=== PATIENT | female | born 1935 | race Caucasian/White ===

== ENCOUNTER 2021-02-19 08:13 | Observation (INO) | payer MEDICARE, OTHER ==
[~2021-02-19] VITALS: Ht 157.5 cm; Wt 56.6 kg
[2021-02-19] MEDS ORDERED: GLYCERIN ADULT 1 SUPP.RECT. PR ONE (08:45)
[2021-02-19] MEDS ORDERED: SODIUM PHOSPHATES 19/7GM 133 ML ENEMA. PR ONE (08:45)
[2021-02-19] MEDS ORDERED: IV RINGERS SOLUTION,LACTATED 1,000 ML IV ONE (08:45)
[2021-02-19] MEDS ORDERED: BISACODYL 10 MG SUPP.RECT PR ONE (08:45)
--- NOTE | 2021-02-19 08:52 | PHYS DOC ---
Past History Past Medical History: Anemia, CAD, Cancer, Hypertension Past Surgical History: Hysterectomy, Other Additional Past Surgical Histo: PORT, AAA repair Alcohol Use: None General Adult EDM: Chief Complaint: CONSTIPATION HPI: HPI: 86-year-old female coming in for constipation for the past 5 days she has not had a bowel movement. Patient states she can "feel it right there". She says she has been too weak to try to strain or force a bowel movement. Patient is currently undergoing chemotherapy with cisplatin and topotecan for small cell carcinoma of the lung. Does not take anything at home. Denies abdominal distention or vomiting. No other complaints. Review of Systems: Review of Systems: All other systems within normal limits except for as noted in the HPI Current Medications: Current Meds: Current Medications Medications (Trade) Dose Ordered Sig/Yuni Start Time Stop Time Status Last Admin Dose Admin Bisacodyl (Dulcolax Supp) 10 mg 1X ONCE 02/19/21 08:45 02/19/21 08:46 UNV Glycerin (Sani-Supp Adult) 1 supp 1X ONCE 02/19/21 08:45 02/19/21 08:46 UNV Lactated Ringer's 1,000 ml @ 1,000 mls/hr 1X ONCE 02/19/21 08:45 02/19/21 09:44 UNV Sodium Biphosphate/ Sodium Phosphate (Fleet Adult) 133 ml 1X ONCE 02/19/21 08:45 02/19/21 08:46 UNV Allergies: Allergies: Allergies Coded Allergies Type Severity Reaction Last Updated Verified codeine Allergy Unknown 02/19/21 Yes morphine Allergy Unknown 02/19/21 Yes Physical Exam: PE: Constitutional: Well developed, well nourished, no acute distress, non-toxic appearance. [] HENT: Normocephalic, atraumatic, bilateral external ears normal, nose normal. [] Eyes: PERRLA, conjunctiva normal, no discharge. [] Neck: No rigidity, supple, no stridor. [] Cardiovascular: Regular rate and rhythm, brisk cap refill [] Lungs & Thorax: Non labored symmetric respirations, no tachypnea or respiratory distress [] Abdomen: Soft, nondistended, no focal tenderness, no pulsatile masses. Skin: Warm, dry, no erythema, no rash. [] Back: Unremarkable Extremities: No deformities, range of motion grossly intact, no lower extremity edema [] Neurologic: Alert and oriented X 3, no focal deficits noted. [] Psychologic: Affect normal, judgement normal, mood normal. [] Current Patient Data: Vital Signs: Vital Signs Date Time Temp Pulse Resp B/P (MAP) Pulse Ox O2 Delivery O2 Flow Rate FiO2 02/19/21 08:20 97.8 105 18 130/80 (97) 96 EKG: EKG: Sinus tachycardia, heart rate 102 bpm, normal axis, no ST elevation or depression. 1 PVC. Normal intervals. [] Radiology/Procedures: Radiology/Procedures: XR ABDOMEN COMP ACUTE INDICATION: obstrucion . COMPARISON STUDY: 09/09/2011. FINDINGS: Left IJ Port-A-Cath. Lungs: Normal lung volume. No pulmonary mass or consolidation. The tracheobronchial tree and hilar structures are normal. Pleura: No pleural effusion or pneumothorax. Heart and Mediastinum: The cardiomediastinal silhouette is normal. Tortuous athe rosclerotic aorta. Abdomen: Nonobstructive bowel gas pattern. Large colonic stool burden. IMPRESSION: 1. Nonobstructive bowel gas pattern. Large colonic stool burden, which may reflect constipation. 2. No focal airspace disease.[] Heart Score: C/O Chest Pain: No Risk Factors: Risk Factors: DM, Current or recent (<one month) smoker, HTN, HLP, family history of CAD, obesity. Risk Scores: Score 0 - 3: 2.5% MACE over next 6 weeks - Discharge Home Score 4 - 6: 20.3% MACE over next 6 weeks - Admit for Clinical Observation Score 7 - 10: 72.7% MACE over next 6 weeks - Early Invasive Strategies Course & Med Decision Making: Course & Med Decision Making Patient had to hard bowel movements after suppositories and enema. Elevated BUN to creatinine ratio secondary to dehydration for cisplatin. Will admit to hospital for the patient and continued bowel cleanout. Pertinent Labs and Imaging studies reviewed. (See chart for details) [] Dragon Disclaimer: Dragon Disclaimer: This electronic medical record was generated, in whole or in part, using a voice recognition dictation system. Departure Departure: Impression: Primary Impression: Obstipation Disposition: ADMITTED INPATIENT Admitting Physician: Gregory Parks Condition: STABLE Referrals: CHERIE GUPTA MD (PCP) JAMESON BARKLEY MD February 19, 2021 08:52
[2021-02-19] MEDS ORDERED: METOCLOPRAMIDE HCL 10 MG/2 ML VIAL. IVP ONE (09:00)
--- NOTE | 2021-02-19 09:18 | RAD ---
XR ABDOMEN COMP ACUTE INDICATION: obstrucion . COMPARISON STUDY: 09/09/2011. FINDINGS: Left IJ Port-A-Cath. Lungs: Normal lung volume. No pulmonary mass or consolidation. The tracheobronchial tree and hilar st ructures are normal. Pleura: No pleural effusion or pneumothorax. Heart and Mediastinum: The cardiomediastinal silhouette is normal. Tortuous atherosclerotic aorta. Abdomen: Nonobstructive bowel gas pattern. Large colonic stool burden. IMPRESSION: 1. Nonobstructive bowel gas pattern. Large colonic stool burden, which may reflect constipation. 2. No focal airspace disease. Electronically signed by: Dashawn Simon MD (02/19/2021 9:16 AM) [id number]
[2021-02-19 09:42] LABS: BASO % 0 % (0-3); EOS % 0 % (0-3); HEMATOCRIT 40.5 % (36.0-47.0); HEMOGLOBIN 13.9 g/dL (12.0-15.5); LYMPH # 0.4 x10^3/uL (1.0-4.8); LYMPH % 3 % (24-48); MEAN CORPUSCULAR HEMOGLOBIN 33 pg (25-35); MEAN CORPUSCULAR HGB CONC 34 g/dL (31-37); MEAN CORPUSCULAR VOLUME 95 fL (79-100); MONO # 0.2 x10^3/uL (0.0-1.1); MONO % 1 % (0-9); NEUT # 17.4 x10^3uL (1.8-7.7); NEUT % 96 % (31-73); PLATELET COUNT 84 x10^3/uL (140-400); RED BLOOD COUNT 4.25 x10^6/uL (3.50-5.40); RED CELL DISTRIBUTION WIDTH 13.1 % (11.5-14.5); WHITE BLOOD COUNT 18.1 x10^3/uL (4.0-11.0)
[2021-02-19 09:55] LABS: CALCIUM 8.7 mg/dL (8.5-10.1); CREATININE 0.8 mg/dL (0.6-1.0); GFR 68.3; POTASSIUM 4.6 mmol/L (3.5-5.1)
[2021-02-19 10:01] LABS: ALBUMIN 3.6 g/dL (3.4-5.0); ALBUMIN/GLOBULIN RATIO 1.2 (1.0-1.7); PHOSPHORUS 3.2 mg/dL (2.6-4.7); TOTAL PROTEIN 6.7 g/dL (6.4-8.2)
[2021-02-19 10:19] LABS: % BANDS 8 % (0-9); % EOS 2 % (0-5); % SEGS 90 % (35-66); PLT ESTIMATE DECREASED (ADEQUATE)
[2021-02-19] MEDS ORDERED: ACETAMINOPHEN 325 MG TABLET PO PRN (10:30)
[2021-02-19] MEDS ORDERED: LACTULOSE 20 GM/30 ML SOLUTION. PO ONE (11:00)
[2021-02-19] MEDS ORDERED: ONDANSETRON PF 4 MG/2 ML VIAL. IVP ONE (12:30)
[2021-02-19] MEDS: IV NORMAL SALINE 1,000ML 1,000 ML IV SCH (12:37)
[2021-02-19 13:10] LABS: FECAL OB PT POSITIVE (NEG)
[2021-02-19 13:39] VITALS: BP 124/80
[2021-02-19] MEDS ORDERED: MAGNESIUM CITRATE 296 ML SOLUTION. PO ONE (16:45)
[2021-02-19] MEDS ORDERED: ONDANSETRON PF 4 MG/2 ML VIAL. IVP PRN (16:45)
--- NOTE | 2021-02-19 17:00 | HP ---
ADMIT DATE: 02/19/2021 HISTORY OF PRESENT ILLNESS: The patient is an 86-year-old female patient who presented to the Emergency Room with complaint of constipation. She stated that she has not had any bowel movement for the last 5 days. She stated that she feels ____; however, she has been too weak to try to strain or force the bowel movement. She started chemotherapy and received her first chemotherapy on Saturday, Saturday, Saturday and in the first cycle of 4 for small cell carcinoma of the lung and had had received . After that, the patient has not been eating or drinking, has been extremely weak that she cannot even strain to force a bowel movement and therefore, the patient came to the Emergency Room for further evaluation and treatment. Her acute abdomen series showed that the patient has nonobstructive bowel gas pattern; however, she has large colonic stool burden, which may reflect constipation. There is no focal airspace disease. The patient was evaluated in the Emergency Room and has had lab work and imaging studies and was given ____ enema as well as glycerin suppositories and bisacodyl suppositories and was admitted for further evaluation and treatment. PAST MEDICAL HISTORY: Significant for lung cancer diagnosed in 04/2020. Apparently, her mental health professional was investigating the source of her shortness of breath that she has a leaky valve according to her, and he thought that she has COPD. She was referred to a patient consumer marketer who diagnosed her with COPD, and during the course of investigation, she had had the CT scan, which showed a nodule in the right lower lobe, for which she underwent bronchoscopy and a needle biopsy that confirmed the diagnosis of small cell carcinoma and she did start chemotherapy last week. She is known to have hypertension, hyperlipidemia, senile macular degeneration. Apparently, her oncologist advised her to stop the antihypertensive medication. PAST SURGICAL HISTORY: Significant for bilateral cataract extraction, cholecystectomy, total abdominal hysterectomy, bilateral salpingo-oophorectomy. She has left patellar fracture, abdominal aortic aneurysm repair, and Port-A-Cath placement. ALLERGIES: SHE IS ALLERGIC TO CODEINE AND MORPHINE. MEDICATIONS: She is apparently on some antihypertensive medication that she is no longer taking, but cannot remember the name. FAMILY HISTORY: She has 1 sister who at the age of 69. Father at the age of 78 because of myocardial infarction. Mother at the age of 93 because of CVA. SOCIAL HISTORY: She is . She has 1 son who lives in [place]. She quit smoking in 2010. She smoked for long time before that. She does not drink alcohol or recreational drugs. 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 REVIEW OF SYSTEMS: The patient denied any blurring of vision, but has had bilateral cataract extraction. She is known to have senile macular degeneration, so she is no longer driving. Denied any earache, tinnitus or sensory deafness. Denied nosebleed, stuffy nose or postnasal drip. Denied any sore throat, sore tongue, toothache, hoarseness of voice or difficulty swallowing. Denied any nausea or vomiting. Did complain of constipation. Denied any chest pain, shortness of breath, orthopnea or paroxysmal nocturnal dyspnea. Denied any cough, phlegm or hemoptysis. PHYSICAL EXAMINATION: GENERAL: On arrival to the Emergency Room, she looked somewhat pale, cachectic, but not jaundiced, cyanosed or thyromegaly. No jugular venous distention, no lower limb edema. VITAL SIGNS: Her heart rate was 105, blood pressure was 130/80, temperature was 97.8, respiratory rate was 18, and oxygen saturation was 96%. HEAD, EYES, EARS, NOSE, AND THROAT: Normocephalic, atraumatic. NECK: Supple. HEART: Showed normal first and second heart sounds. No gallop or murmur. CHEST: Clear to auscultation, no crepitation or rhonchi. ABDOMEN: Slightly distended, soft, nontender, no guarding or rigidity. No organomegaly. All hernial orifice intact. Bowel sounds normal. NEUROLOGIC: She was grossly intact. LABORATORY DATA: Her lab work on arrival to the Emergency Room showed a white cell count of 18,100, hemoglobin 14, hematocrit 40, MCV 95, and platelet count of 84,000 with a manual differential showed 96% polymorphs, 3% lymphocytes, 1% monocytes. Her chemistry showed a serum sodium 135, potassium 4.6, chloride 102, bicarbonate 24, anion gap of 9, BUN 27, creatinine was 0.8. Estimated GFR was 68 mL per minute. Her glucose was 111, calcium was 8.7, phosphorus was 3.2, magnesium was 2. Total bilirubin, AST, ALT, alkaline phosphatase were normal. Her total protein was 6.7, albumin was 3.8. Her stool for occult blood was positive. ASSESSMENT: In summary, this is an 86-year-old female patient who was admitted with: 1. Severe constipation, probably multifactorial. 2. She has small cell lung cancer, treated with radiation therapy and now undergoing chemotherapy. 3. Chronic obstructive pulmonary disease. 4. Hypertension. 5. Hyperlipidemia. 6. Senile macular degeneration. PLAN: To continue with IV fluid. She has had Fleet enema, bisacodyl, Dulcolax, and lactulose. We will observe her tomorrow. If she has responded very well, she probably can go home tomorrow. SUSAN/JOSE ANGEL/GLADYS DR: Kapil TID: [id number]
[2021-02-19 20:00] VITALS: BP 120/76
[2021-02-19 23:14] VITALS: BP 118/75
--- NOTE | 2021-02-20 00:13 | EKG ---
[address] [address] Test Date: 2021-02-19 Test Time: 08:42:22 Pat Name: VENKAT APARICIO Department: Room: Gender: F Electromatic Typist: [facility] : 1935 Requested By: JAMESON BARKLEY Order Number: [id number] Reading MD: Measurements Intervals Coats Rate: 102 P: 30 AR: 160 QRS: 59 QRSD: 92 T: 58 QT: 322 QTc: 424 Interpretive Statements SINUS TACHYCARDIA OTHERWISE NORMAL ECG RI6.02 No previous ECG available for comparison
[2021-02-20] MEDS: IV NORMAL SALINE 1,000ML 1,000 ML IV SCH (05:17)
[2021-02-20 05:45] VITALS: BP 134/84
[2021-02-20 07:09] LABS: HEMATOCRIT 35.7 % (36.0-47.0); HEMOGLOBIN 12.2 g/dL (12.0-15.5); RED BLOOD COUNT 3.72 x10^6/uL (3.50-5.40); RED CELL DISTRIBUTION WIDTH 13.1 % (11.5-14.5); WHITE BLOOD COUNT 8.2 x10^3/uL (4.0-11.0)
[2021-02-20 07:14] LABS: ALBUMIN/GLOBULIN RATIO 1.1 (1.0-1.7); CALCIUM 8.1 mg/dL (8.5-10.1); CREATININE 0.7 mg/dL (0.6-1.0); GFR 79.7; POTASSIUM 4.3 mmol/L (3.5-5.1); TOTAL BILIRUBIN 0.7 mg/dL (0.2-1.0); TOTAL PROTEIN 5.7 g/dL (6.4-8.2)
[2021-02-20 11:29] VITALS: BP 144/82
--- NOTE | 2021-02-20 13:40 | DS ---
DATE OF DISCHARGE: 02/20/2021 HOSPITAL COURSE: The patient is resting, slightly propped up in bed, eating her lunch comfortably, in no apparent distress. She has multiple bowel movements overnight and this morning. Denied any complaint and was ready to go home. PHYSICAL EXAMINATION: GENERAL: When I examined her, she looked well and was clearly in no apparent respiratory distress. No pallor, jaundice, cyanosis or thyromegaly, jugular distention or limb edema. VITAL SIGNS: Heart rate was 100, blood pressure is 144/82, temperature was 98.7, respiratory rate was 18 and oxygen saturation was 93% on room air. HEAD, EYES, EARS, NOSE AND THROAT: Showed normocephalic, atraumatic. NECK: Supple. HEART: Normal first and second heart sounds, no gallop, murmur. CHEST: Clear to auscultation. No crepitation or rhonchi. ABDOMEN: Scaphoid, soft, nontender. NEUROLOGIC: She is grossly intact. LABORATORY DATA: This morning showed a white cell count of 8200, hemoglobin 12, hematocrit 36, MCV 96, platelet count of 69,000. Her chemistry showed a serum sodium 141, potassium 4.3, chloride 106, bicarbonate 24, anion gap of 11, BUN 20, creatinine 0.7. Estimated GFR was 79 mL per minute. Her glucose was 97, calcium was 8.1. Total bilirubin, AST, ALT, alkaline phosphatase were normal. Total protein 5.7, albumin was 3. FINAL DISCHARGE DIAGNOSES: 1. Severe constipation, resolved. 2. Lung cancer, treated with radiation therapy and chemotherapy. She received her first chemotherapy last week on Saturday, Saturday, Saturday. 3. Chronic obstructive pulmonary disease. 4. Hypertension. SUSAN/KEITH DR: Kapil TID: [id number]
== END 2021-02-20 12:50 | disposition home or self-care (01) ==
LOC: ER 08:13 → INTOOBSV 10:29 → 1 SOUTH 10:29 → ER 13:18
PROVIDERS: ADMIT Internal Medicine; ATTEND Internal Medicine
DX: K59.00 Constipation, unspecified (principal); C34.90 Malignant neoplasm of unspecified part of unspecified bronchus or lung; J44.9 Chronic obstructive pulmonary disease, unspecified; I10 Essential (primary) hypertension; E78.5 Hyperlipidemia, unspecified; R54 Age-related physical debility; E11.9 Type 2 diabetes mellitus without complications; I25.10 Atherosclerotic heart disease of native coronary artery without angina pectoris; Z85.118 Personal history of other malignant neoplasm of bronchus and lung; Z86.79 Personal history of other diseases of the circulatory system; Z87.891 Personal history of nicotine dependence; Z90.710 Acquired absence of both cervix and uterus; Z92.3 Personal history of irradiation; Z98.41 Cataract extraction status, right eye; Z98.42 Cataract extraction status, left eye; Z90.49 Acquired absence of other specified parts of digestive tract; Z79.899 Other long term (current) drug therapy; Z98.890 Other specified postprocedural states
CPT/HCPCS: 36415; 74022; 80053; 82274; 83735; 84100; 85007; 85025; 85027; 93005; 96361; 96374; 96375; 96376; 99285; G0378; J2405; J2765; J7030; J7120; G0379